=== PATIENT | female | born 1970 | race Caucasian/White ===

== ENCOUNTER 2022-03-20 14:38 | Outpatient (CLI) | payer OTHER, SELFPAY ==
[2022-03-21 02:05] LABS: Hepatitis C Virus Antibody* Negative (Negative)
[2022-03-21 02:18] LABS: Hepatitis B Surface Antibody* Indeterminant (Negative)
[2022-03-23 00:13] LABS: HIV Serologic Interpretation HIV Abs Neg; HIV-1 Antibody Negative (Negative); HIV-2 Antibody Negative (Negative)
[2022-03-23 18:52] LABS: HIV-1 Qnt NAAT copies/mL Not Detected log cpy/mL
== END 2022-03-20 14:39 | disposition home or self-care (01) ==
PROVIDERS: Visit Provider Registered Nurse
DX: Z77.21 Contact with and (suspected) exposure to potentially hazardous body fluids (principal)
CPT/HCPCS: 86701; 86702; 86706; 86803; 87536